=== PATIENT | female | born 1970 | race Caucasian/White ===

== ENCOUNTER 2018-11-08 11:58 | Emergency (ER) | payer BC, OTHER ==
[2018-11-08] MEDS ORDERED: Sodium Chloride 0.9% 10 ML Syringe FLUSH PRN (12:10)
[2018-11-08] MEDS ORDERED: Lactated Ringers 1,000 ML IV ONE ×2 (12:11→13:19)
[2018-11-08] MEDS ORDERED: Ondansetron 4 MG/2 ML SDV IVPUSH ONE (12:12)
[2018-11-08 12:58] LABS: CHLORIDE,CL 103 mmol/L (98-107); SODIUM,NA 141 mmol/L (136-145)
[2018-11-08 13:00] LABS: ANION GAP 15.8 mmol/L (10-20)
[2018-11-08] MEDS ORDERED: Prochlorperazine 10 MG/2 ML SDV IV ONE (13:18)
[2018-11-08] MEDS ORDERED: Take Home: Ondansetron 4 MG Tab.DIS, 2 Tab Pack PO ONE (14:34)
--- NOTE | 2018-11-09 06:38 | EDM.PDOC ---
ED HPI GENERAL MEDICAL PROBLEM - General Chief Complaint: Gastrointestinal Problem Time Seen by Provider: 11/08/18 15:01 Source of Information: Reports: Patient, RN Notes Reviewed History Limitations: Reports: No Limitations - History of Present Illness INITIAL COMMENTS - FREE TEXT/NARRATIVE: Pt. presents to ER with complaints of nausea and vomiting for 24 hours. Denies any diarrhea. No abdominal discomfort. Denies any fever or chills. No chest pain or shortness of breath. Denies any ill contacts. Denies any melena, hematochezia, or hematemesis. He states that he is unable to hold down any fluids. Onset Date: 11/07/18 Associated Symptoms: Reports: Nausea/Vomiting - Related Data Allergies Allergy/AdvReac Type Severity Reaction Status Date / Time No Known Allergies Allergy Verified 11/08/18 12:13 Home Meds: Home Meds Sertraline HCl 50 mg PO DAILY 11/08/18 [History] busPIRone HCl [Buspirone HCl] 7.5 mg PO BID 11/08/18 [History] Past Medical History Psychiatric History: Reports: Anxiety, Depression Social & Family History - Tobacco Use Smoking Status *Q: Never Smoker - Recreational Drug Use Recreational Drug Use: No ED ROS GENERAL - Review of Systems Review Of Systems: See Below Constitutional: Reports: Decreased Appetite. Denies: Fever, Chills, Malaise, Weakness, Fatigue, Diaphoresis HEENT: Reports: No Symptoms Respiratory: Reports: No Symptoms Cardiovascular: Reports: No Symptoms Endocrine: Reports: No Symptoms GI/Abdominal: Reports: Decreased Appetite, Nausea, Vomiting. Denies: Abdominal Pain, Black Stool, Bloody Stool, Distension, Hematemesis, Hematochezia, Melena : Reports: No Symptoms Musculoskeletal: Reports: No Symptoms Skin: Reports: No Symptoms Neurological: Reports: No Symptoms Psychiatric: Reports: No Symptoms Hematologic/Lymphatic: Reports: No Symptoms ED EXAM, GENERAL - Physical Exam Exam: See Below Exam Limited By: No Limitations General Appearance: Alert, WD/WN, Anxious, Moderate Distress Eye Exam: Bilateral Eye: EOMI, PERRL Nose: Normal Inspection, Normal Mucosa Throat/Mouth: Normal Inspection, Normal Lips, Normal Teeth, Normal Voice, No Airway Compromise Head: Atraumatic Neck: Normal Inspection, Supple, Non-Tender Respiratory/Chest: No Respiratory Distress, Lungs Clear, Normal Breath Sounds, No Accessory Muscle Use, Chest Non-Tender Cardiovascular: Normal Peripheral Pulses, Regular Rate, Rhythm, No Edema, No JVD , No Rub Peripheral Pulses: 4+: Radial (L) GI/Abdominal: Normal Bowel Sounds, Soft, Non-Tender, No Organomegaly, No Distention, No Abnormal Bruit, No Mass (Female) Exam: Deferred Rectal (Female) Exam: Deferred Back Exam: Normal Inspection, Full Range of Motion Extremities: Normal Inspection, Normal Range of Motion, Non-Tender, No Pedal Edema, Normal Capillary Refill Neurological: Alert, Oriented, CN II-XII Intact, Normal Cognition, Normal Gait, Normal Reflexes, No Motor/Sensory Deficits Psychiatric: Normal Affect, Normal Mood Skin Exam: Warm, Dry, Intact, Normal Color, No Rash Lymphatic: No Adenopathy Course - Vital Signs Last Recorded V/S: Last Vital Signs Temp 36.6 C 11/08/18 11:58 Pulse 75 11/08/18 11:58 Resp 20 11/08/18 11:58 BP 141/55 H 11/08/18 11:58 Pulse Ox 96 11/08/18 11:58 - Orders/Labs/Meds Orders: Active Orders 24 hr Category Date Time Status Peripheral IV Insertion Adult [OM.PC] Routine Oth 11/08/18 12:11 Ordered Labs: Laboratory Tests 11/08/18 11/08/18 11/08/18 Range/Units 12:18 12:18 12:18 WBC 8.0 (4.0-10.0) x10^3/uL RBC 4.20 (4.00-5.50) x10^6/uL Hgb 11.5 L (12.0-16.0) g/dL Hct 34.3 (33.0-47.0) % MCV 81.7 (78.0-93.0) fL MCH 27.4 (26.0-32.0) pg MCHC 33.5 (32.0-36.0) g/dL RDW Coeff of Jet 13.9 (10.0-15.0) % Plt Count 338 (130-400) x10^3/uL Neut % (Auto) 79.6 (50.0-80.0) % Lymph % (Auto) 15.3 L (25.0-50.0) % [place] % (Auto) 4.3 (2.0-11.0) % Eos % (Auto) 0.3 (0.0-4.0) % Baso % (Auto) 0.5 (0.2-1.2) % PT 10.1 (10.0-12.8) SEC INR 0.9 L (2.0-3.5) Sodium 141 (136-145) mmol/L Potassium 3.8 (3.5-5.1) mmol/L Chloride 103 (98-107) mmol/L Carbon Dioxide 26 (21-32) mmol/L Anion Gap 15.8 (10-20) mmol/L BUN 13 (7-18) mg/dL Creatinine 0.7 (0.55-1.02) mg/dL Est Cr Clr Drug Dosing TNP Estimated GFR (MDRD) > 60 Glucose 123 H (74-106) mg/dL Calcium 9.1 (8.5-10.1) mg/dL Corrected Calcium 9.18 (8.5-10.1) mg/dL Total Bilirubin 0.4 (0.2-1.0) mg/dL AST 41 H (15-37) U/L ALT 75 H (14-59) U/L Alkaline Phosphatase 97 (46-116) U/L C-Reactive Protein < 0.2 (<=0.9) mg/dL Total Protein 7.6 (6.4-8.2) g/dL Albumin 3.9 (3.4-5.0) g/dL Globulin 3.7 Albumin/Globulin Ratio 1.05 TSH, Ultra Sensitive 0.513 (0.358-3.74) uIU/mL Meds: Medications Discontinued Medications Generic Name Dose Route Start Last Admin Trade Name Freq PRN Reason Stop Dose Admin Lactated Ringer's 1,000 mls @ 1,000 mls/hr 11/08/18 12:11 11/08/18 12:15 Ringers, Lactated IV 11/08/18 13:10 1,000 mls/hr ONETIME ONE Administration Lactated Ringer's 1,000 mls @ 1,000 mls/hr 11/08/18 13:19 11/08/18 13:36 Ringers, Lactated IV 11/08/18 14:18 1,000 mls/hr ONETIME ONE Administration Ondansetron HCl 4 mg 11/08/18 12:12 11/08/18 12:27 Zofran IVPUSH 11/08/18 12:13 4 mg ONETIME ONE Administration Ondansetron HCl 1 packet 11/08/18 14:34 11/08/18 14:55 Take Home: Ondansetron Odt 4 Mg, 2 Tab Pack PO 11/08/18 14:35 1 packet ONETIME ONE Administration Prochlorperazine Edisylate 5 mg 11/08/18 13:18 11/08/18 13:28 Compazine IV 11/08/18 13:19 5 mg ONETIME ONE Administration Sodium Chloride 10 ml 11/08/18 12:10 Saline Flush FLUSH ASDIRECTED PRN Keep Vein Open - Re-Assessments/Exams Free Text/Narrative Re-Assessment/Exam: Pt. was given a total of 2 liters of fluid, 4 mg of zofran, and 5 mg of compazine. Pt. reported feeling much improved after the second liter of fluid and compazine. Departure - Departure Time of Disposition: 15:01 Disposition: Home, Self-Care 01 Clinical Impression: Gastroenteritis - Discharge Information Instructions: Ondansetron oral dissolving tablet, Viral Gastroenteritis, Adult , [id number] Referrals: Laura Peng PA-C [Primary Care Provider] - Forms: ED Department Discharge Additional Instructions: Home to rest. Just clear liquids today. Tomorrow, slowly advance diet to include solid food. Start with toast, rice, bananas, and crackers. Recheck in clinic in 10-14 days. - My Orders Last 24 Hours: My Active Orders 11/08/18 12:11 Peripheral IV Insertion Adult [OM.PC] Routine - Assessment/Plan Last 24 Hours: My Active Orders 11/08/18 12:11 Peripheral IV Insertion Adult [OM.PC] Routine Plan: Home to rest. Just clear liquids today. Tomorrow, slowly advance diet to include solid food. Start with toast, rice, bananas, and crackers. Recheck in clinic in 10-14 days.
== END 2018-11-08 15:01 | disposition home or self-care (01) ==
LOC: VM.ED 11:58
DX: K52.9 Noninfective gastroenteritis and colitis, unspecified (principal); F41.9 Anxiety disorder, unspecified; F32.9 Major depressive disorder, single episode, unspecified; Z79.899 Other long term (current) drug therapy
CPT/HCPCS: 36415; 80053; 84443; 85025; 85610; 86140; 96361; 96374; 96375; 99284-25; A9270-GY; J0780; J2405; J7120